=== PATIENT | female | born 1955 | race Caucasian/White ===

== ENCOUNTER → 2017-04-26 | Outpatient (CLI) | payer OTHER ==
[2016-05-18 17:57] VITALS: BP 165/92
[~2017-04-26] MED LIST: ACET325T9 PO; ASPI81TA44 PO; ATOR10TA PO; CARV12.52 PO; DOCU-109 PO; DULO60CA6 PO; MAG30ORA2 PO; MAGN2400 PO; OLME1TAB25 PO; OMEP20CA9 PO; RIVA10TA PO; WARF6TAB7 PO
--- NOTE | 2017-04-26 12:36 | RAD ---
EXAM: ABDOMINAL ULTRASOUND. HISTORY: Epigastric pain. COMPARISON: None. FINDINGS: Sonographic evaluation of the abdomen was performed. The liver appears normal in parenchymal echotexture. There are no focal lesions. The spleen measures 7.9 cm. The gallbladder is unremarkable without evidence of stones, wall thickening or pericholecystic fluid. There is no sonographic French sign. The common duct measures 4 mm. The visualized portions of the head, body and tail of the pancreas reveal no abnormality. The right kidney measures 9.9 cm. Cortical thickness and echogenicity are preserved. There is no hydronephrosis. The left kidney measures 10.2 cm. Cortical thickness and echogenicity are preserved. There is no hydronephrosis. The visualized portions of the abdominal aorta and inferior vena cava are grossly patent and normal in caliber. IMPRESSION: 1. No cause for abdominal pain is identified.
== END | disposition home or self-care (01) ==
LOC: US 10:48
PROVIDERS: ATTEND Internal Medicine Gastroenterology
DX: R10.13 Epigastric pain (principal); R10.816 Epigastric abdominal tenderness
CPT/HCPCS: 76700

== ENCOUNTER → 2017-12-15 | Outpatient (CLI) | payer OTHER ==
[2016-05-18 17:57] VITALS: BP 165/92
[~2017-12-15] MED LIST changes: -ASPI81TA44 PO; +ASPI81TA59 PO; +WARF6TAB47 PO; -WARF6TAB7 PO
--- NOTE | 2017-12-15 08:35 | RAD ---
Left hip radiograph December 15, 2017 INDICATION: Left hip pain. COMPARISON: None available. TECHNIQUE: 2 views of the left hip are provided. FINDINGS: There is no acute fracture or dislocation. Bone mineralization is within normal limits. Joint spaces are maintained. Regional soft tissues are within normal limits. There is no soft tissue gas or osseous erosion. Left sacroiliac joint appears normal. Visualized portions of the sacrum appear intact. IMPRESSION: No acute fracture or dislocation. Electronically signed by: Elli Morrow MD (12/15/2017 8:32 AM) [id number]
== END | disposition home or self-care (01) ==
LOC: PMG 08:05
PROVIDERS: ATTEND Physician Assistant Medical
DX: M25.552 Pain in left hip (principal)
CPT/HCPCS: 73502

== ENCOUNTER → 2018-04-11 | Outpatient (CLI) | payer OTHER ==
[2016-05-18 17:57] VITALS: BP 165/92
--- NOTE | 2018-04-11 12:39 | RAD ---
Chest, 2 views, 04/11/2018: HISTORY: Cough Comparison is made to a study from 05/18/2016. The heart size and pulmonary vascularity are normal. There are calcified mediastinal and left hilar nodes compatible with old granulomatous disease. The lungs are somewhat hyperexpanded. No pulmonary infiltrate is seen. No pleural fluid is evident. An old healed right clavicular fracture is present. IMPRESSION: No acute cardiopulmonary abnormality is detected. Electronically signed by: Thien Orantes MD (04/11/2018 12:36 PM) [facility]
--- NOTE | 2018-04-11 13:06 | RAD ---
DATE: 04/11/2018 EXAM: MAMMO DENZEL SCREENING BILATERAL HISTORY: Routine screening COMPARISON: 09/25/2013 This study was interpreted with the benefit of Computerized Aided Detection (CAD). Breast Density: SCATTERED The breast parenchyma shows scattered fibroglandular densities. Breast parenchyma level B. FINDINGS: 2-D and 3-D tomosynthesis imaging was performed in CC and MLO projections. There is a 13 mm nodule in the posterolateral aspect of the left breast, best seen on the oblique tomosynthesis images #22 in CC tomosynthesis image #18. Its margins are slightly lobulated. In retrospect it was probably present on the previous study, although better defined on the current 3-D exam due to technical factors. No suspicious right breast opacities are seen. Benign type calcifications are present in both breasts. No suspicious microcalcifications are evident. IMPRESSION: Left breast nodule as described above. Sonographic evaluation is suggested. BI-RADS CATEGORY: 0 INCOMPLETE: NEEDS ADDITIONAL IMAGING EVALUATION AND/OR PRIOR MAMMOGRAMS FOR COMPARISON. RECOMMENDED FOLLOW-UP: ADD ADDITIONAL IMAGING PQRS compliance statement: Patient information was entered into a reminder system with a target due date for the next mammogram. Mammography is a sensitive method for finding small breast cancers, but it does not detect them all and is not a substitute for careful clinical examination. A negative mammogram does not negate a clinically suspicious finding and should not result in delay in biopsying a clinically suspicious abnormality. "Our facility is accredited by the [employer] Mammography Program."
== END | disposition home or self-care (01) ==
LOC: MAMMO 10:19
PROVIDERS: ATTEND Internal Medicine
DX: Z12.31 Encounter for screening mammogram for malignant neoplasm of breast (principal); N63.21 Unspecified lump in the left breast, upper outer quadrant; R05 Cough; R59.0 Localized enlarged lymph nodes; R07.89 Other chest pain
CPT/HCPCS: 71046; 77063; 77067

== ENCOUNTER → 2018-04-18 | Outpatient (CLI) | payer OTHER ==
[2016-05-18 17:57] VITALS: BP 165/92
--- NOTE | 2018-04-18 14:43 | RAD ---
Left breast ultrasound, 04/18/2018: History: Breast nodule Recent mammograms demonstrated a nodule in the upper outer quadrant of the left breast. A targeted ultrasound exam was performed. At the 2:30 location approximately 8 cm from the nipple there is a smooth oval-shaped hypoechoic nodule measuring 11 x 10 x 4 mm. There are low level internal echoes. No internal color flow is seen. It is wider than tall. The appearance suggests a fibroadenoma versus a complicated cyst. A circumscribed malignancy is much less likely. This appears to correspond to the mammographic abnormality. No other sonographic abnormality was detected IMPRESSION: Probably benign left breast nodule as described above. Surveillance beginning with left mammography and left breast ultrasound in 6 months is suggested. BI-RADS 3-probably benign findings
== END | disposition home or self-care (01) ==
LOC: US 13:03
PROVIDERS: ATTEND Internal Medicine
DX: R92.8 Other abnormal and inconclusive findings on diagnostic imaging of breast (principal); F17.200 Nicotine dependence, unspecified, uncomplicated
CPT/HCPCS: 76641

== ENCOUNTER → 2018-06-28 | Outpatient (CLI) | payer OTHER ==
[2016-05-18 17:57] VITALS: BP 165/92
[~2018-06-28] MED LIST changes: -CARV12.52 PO; +CARV12.547 PO
--- NOTE | 2018-06-29 07:39 | RAD ---
Exam:Bilateral ribs with PA chest Date: 06/28/2018 12:00 AM Comparison: 04/11/2018 Indication: ribs with pa chest for fall and pain, 2 days ago Findings/ Impression: The heart is not enlarged. Mediastinal and hilar contours are normal. No focal parenchymal airspace opacity. No pleural effusion or pneumothorax. AP, Oblique and Spot images of bilateral ribs demonstrates subtle cortical irregularity of the posterior-lateral aspect of the right eighth and ninth ribs with trace associated pleural elevation-thickening. These are suspicious for nondisplaced rib fractures and can be correlated with patient's symptoms. Symmetrical intercostal spacing. Electronically signed by: Fausto Murphy MD (06/29/2018 7:35 AM) [facility]
== END | disposition home or self-care (01) ==
LOC: PMG 16:54
PROVIDERS: ATTEND Registered Nurse
DX: R06.02 Shortness of breath (principal); W19.XXXD Unspecified fall, subsequent encounter
CPT/HCPCS: 71111

== ENCOUNTER → 2018-07-12 | Outpatient (CLI) | payer OTHER ==
[2016-05-18 17:57] VITALS: BP 165/92
--- NOTE | 2018-07-12 13:06 | RAD ---
EXAM: Head CT without contrast. HISTORY: Loss of consciousness. TECHNIQUE: Computed tomographic images of the head were obtained without contrast. *One or more of the following individualized dose reduction techniques were utilized for this examination: 1. Automated exposure control. 2. Adjustment of the mA and/or kV according to patient size. 3. Use of iterative reconstruction technique. COMPARISON: None. FINDINGS: There is no acute or subacute extra-axial or intraparenchymal hemorrhage. There is no mass effect or midline shift. There is no hydrocephalus. There are areas of decreased attenuation within the cerebral white matter, nonspecific and likely related to chronic small vessel disease. The visualized portions of the orbits, paranasal sinuses and mastoid air cells are unremarkable. No suspicious calvarial lesion is seen. IMPRESSION: 1. No acute intracranial finding. Note is made that MRI is more sensitive for acute infarction. 2. Decreased attenuation within the cerebral white matter, likely due to chronic small vessel disease. Electronically signed by: Radha Lieberman MD (07/12/2018 1:02 PM) [email or web address]
== END | disposition home or self-care (01) ==
LOC: CT 12:30
PROVIDERS: ATTEND Registered Nurse
DX: R40.4 Transient alteration of awareness (principal)
CPT/HCPCS: 70450

== ENCOUNTER 2018-09-07 01:02 | Observation (INO) | payer OTHER ==
[~2018-09-07] VITALS: Ht 157.5 cm; Wt 67.2 kg
--- NOTE | 2018-09-07 01:25 | PHYS DOC ---
Past History Past Medical History: GERD, Hypertension, Other Past Surgical History: Appendectomy, Tonsillectomy, Other Smoking: Cigarettes, Less than 1pk/day Alcohol Use: Occasionally Drug Use: None Adult General Chief Complaint Chief Complaint: ABDOMINAL PAIN HPI HPI 63-year-old female presents with abdominal pain. The patient was sitting on the TV with her significant other when she began abdominal pain. It is moderate in intensity. It comes in waves it is a cramping sensation. She had one episode of vomiting dark material, but admits to eating dark chocolate prior to vomiting. Patient continues to be nauseated. She denies diarrhea. The patient also noticed that her skin seems red all over. She is currently taking Benadryl for the last 2 days after having her hair dyed. She is allergic to hair dye and takes Benadryl after she has it dyed. She denies fever or chills. Review of Systems Review of Systems Constitutional: Denies fever or chills [] Eyes: Denies change in visual acuity, redness, or eye pain [] HENT: Denies nasal congestion or sore throat [] Respiratory: Denies cough or shortness of breath [] Cardiovascular: No additional information not addressed in HPI [] GI: Abdominal pain, nausea, one episode of vomiting. Denies bloody stools or diarrhea [] : Denies dysuria or hematuria [] Musculoskeletal: Denies back pain or joint pain [] Integument: Red skin[] Neurologic: Denies headache, focal weakness or sensory changes [] Endocrine: Denies polyuria or polydipsia [] All other systems were reviewed and found to be within normal limits, except as documented in this note. Allergies Allergies Allergies Coded Allergies Type Severity Reaction Last Updated Verified Opioids - Morphine Analogues Allergy Intermediate RASH 01/30/14 No codeine Allergy Intermediate RASH 01/30/14 No morphine Allergy Intermediate RASH 01/30/14 No Physical Exam Physical Exam Constitutional: Well developed, well nourished, no acute distress, non-toxic appearance. [] HENT: Normocephalic, atraumatic, bilateral external ears normal, oropharynx moist, no oral exudates, nose normal. [] Eyes: PERRLA, EOMI, conjunctiva normal, no discharge. [] Neck: Normal range of motion, no tenderness, supple, no stridor. [] Cardiovascular:Heart rate regular rhythm, no murmur [] Lungs & Thorax: Bilateral breath sounds clear to auscultation [] Abdomen: Bowel sounds normal, soft, diffuse tenderness[] Skin: Warm, dry, generalized mild erythema, no discernible rash. [] Back: No tenderness, no CVA tenderness. [] Extremities: No tenderness, no cyanosis, no clubbing, ROM intact, no edema. [] Neurologic: Alert and oriented X 3, normal motor function, normal sensory function, no focal deficits noted. [] Psychologic: Affect normal, judgement normal, mood normal. [] EKG EKG [] Radiology/Procedures Radiology/Procedures [] Impressions: EXAM: CT Abdomen and Pelvis with IV contrast CLINICAL HISTORY: Lower abdominal pain, sudden onset, N/V. Hx: Appendectomy, hysterectomy. COMPARISON: none TECHNIQUE: Helical CT of the abdomen and pelvis was performed following the administration of intravenous contrast. Axial, coronal and sagittal reformatted images were generated. PQRS compliance statement - One or more of the following individualized dose reduction techniques were utilized for this study: 1. Automated exposure control 2. Adjustment of the mA and/or kV according to patient size 3. Use of iterative reconstruction technique FINDINGS: Lower chest: Linear opacities in the lower lobes likely scarring/atelectasis. Left lower lobe calcified granuloma seen. Trace pericardial fluid may be physiologic. Abdomen and Pelvis: No focal liver lesion. Gallbladder is normal. No biliary ductal dilatation. Calcified granuloma are seen within the spleen. Adrenal glands and pancreas are unremarkable. Symmetric nephrograms. No focal renal lesion. No hydronephrosis. No small bowel dilatation. Moderate colonic stool content. There is also borderline dilation of the right colon/cecum. No abdominal pelvic ascites. No abdominal or pelvic lymphadenopathy. Aortic calcifications are seen. Small fat-containing periumbilical hernia. Bones: Old rib fractures bilaterally including subacute anterior fifth and sixth rib fractures. Multilevel degenerative changes of spine are seen. IMPRESSION: 1. Prominent appearance to borderline dilation of the right colon with predominantly fluid content, may be seen with diarrheal state. Moderate colonic stool content is seen distally. 2. No evidence for small bowel obstruction. 3. Subacute/healing anterior left fifth and sixth rib fractures Electronically signed by: Fausto Luque MD (09/07/2018 2:04 AM) [id number] DICTATED AND SIGNED BY: FAUSTO LUQUE MD DATE: 09/07/18 0152 CC: DENISE DEL ROSARIO DO; OSCAR JOYNER MD ~ Course & Med Decision Making Course & Med Decision Making Pertinent Labs and Imaging studies reviewed. (See chart for details) The patient's labs are significant for creatinine 1.6. Review of her chart does not show creatinines this level previously. Her most recent is a few years old. The patient's CT of the abdomen and pelvis does not show definite obstruction, but does show borderline dilation of the right:. Most of the colon is fluid- filled. The patient continues to have nausea, abdominal pain, and has vomited. I will give an additional dose of Zofran. The patient gets a rash with morphine derivatives so she was like Toradol for pain control. I have given her 1 L normal saline. Given the patient's CT exam, and her continued pain, I believe it would be best to admit her for further observation and workup. The patient is in agreement with this plan. I discussed the patient with Dr. Dozier and he has accepted the patient for admission. [] Dragon Disclaimer Dragon Disclaimer This electronic medical record was generated, in whole or in part, using a voice recognition dictation system. Departure Departure: Impression: Primary Impression: Abdominal pain Additional Impression: Colon distention Disposition: ADMITTED INPATIENT Condition: GUARDED Referrals: OSCAR JOYNER MD (PCP) Problem Qualifiers Primary Impression: Abdominal pain Abdominal location: generalized Qualified Codes: R10.84 - Generalized abdominal pain DENISE DEL ROSARIO DO Sep 07, 2018 01:25
[2018-09-07] MEDS ORDERED: CONTRAST GIVEN MC PRN (01:30)
[2018-09-07 01:35] LABS: BASO # 0.1 x10^3/uL (0.0-0.2); BASO % 1 % (0-3); EOS # 0.2 x10^3/uL (0.0-0.7); EOS % 2 % (0-3); HEMATOCRIT 41.2 % (36.0-47.0); HEMOGLOBIN 14.1 g/dL (12.0-15.5); LYMPH # 2.6 x10^3/uL (1.0-4.8); LYMPH % 23 % (24-48); MEAN CORPUSCULAR HEMOGLOBIN 34 pg (25-35); MEAN CORPUSCULAR HGB CONC 34 g/dL (31-37); MEAN CORPUSCULAR VOLUME 99 fL (79-100); MONO # 0.2 x10^3/uL (0.0-1.1); MONO % 2 % (0-9); NEUT % 72 % (31-73); PLATELET COUNT 369 x10^3/uL (140-400); RED BLOOD COUNT 4.17 x10^6/uL (3.50-5.40)
[2018-09-07 01:52] LABS: ALBUMIN/GLOBULIN RATIO 1.2 (1.0-1.7); CALCIUM 9.5 mg/dL (8.5-10.1); CREATININE 1.6 mg/dL (0.6-1.0); GFR 32.8; POTASSIUM 3.1 mmol/L (3.5-5.1); TOTAL BILIRUBIN 0.5 mg/dL (0.2-1.0); TOTAL PROTEIN 7.3 g/dL (6.4-8.2)
[2018-09-07] MEDS ORDERED: IOHEXOL 300 MG/ML 75 ML VIAL. IV ONE (02:00)
[2018-09-07] MEDS ORDERED: IV NORMAL SALINE 1,000ML 1,000 ML IV ONE ×2 (02:00→03:00)
[2018-09-07] MEDS ORDERED: ONDANSETRON PF 4 MG/2 ML VIAL. IV ONE ×2 (02:00→03:00)
--- NOTE | 2018-09-07 02:07 | RAD ---
EXAM: CT Abdomen and Pelvis with IV contrast CLINICAL HISTORY: Lower abdominal pain, sudden onset, N/V. Hx: Appendectomy, hysterectomy. COMPARISON: none TECHNIQUE: Helical CT of the abdomen and pelvis was performed following the administration of intravenous contrast. Axial, coronal and sagittal reformatted images were generated. PQRS compliance statement - One or more of the following individualized dose reduction techniques were utilized for this study: 1. Automated exposure control 2. Adjustment of the mA and/or kV according to patient size 3. Use of iterative reconstruction technique FINDINGS: Lower chest: Linear opacities in the lower lobes likely scarring/atelectasis. Left lower lobe calcified granuloma seen. Trace pericardial fluid may be physiologic. Abdomen and Pelvis: No focal liver lesion. Gallbladder is normal. No biliary ductal dilatation. Calcified granuloma are seen within the spleen. Adrenal glands and pancreas are unremarkable. Symmetric nephrograms. No focal renal lesion. No hydronephrosis. No small bowel dilatation. Moderate colonic stool content. There is also borderline dilation of the right colon/cecum. No abdominal pelvic ascites. No abdominal or pelvic lymphadenopathy. Aortic calcifications are seen. Small fat-containing periumbilical hernia. Bones: Old rib fractures bilaterally including subacute anterior fifth and sixth rib fractures. Multilevel degenerative changes of spine are seen. IMPRESSION: 1. Prominent appearance to borderline dilation of the right colon with predominantly fluid content, may be seen with diarrheal state. Moderate colonic stool content is seen distally. 2. No evidence for small bowel obstruction. 3. Subacute/healing anterior left fifth and sixth rib fractures Electronically signed by: Fausto Murphy MD (09/07/2018 2:04 AM) [id number]
[2018-09-07] MEDS ORDERED: ONDANSETRON PF 4 MG/2 ML VIAL. IV PRN (02:45)
[2018-09-07] MEDS ORDERED: KETOROLAC 30 MG/ML VIAL. ONE (02:46)
[2018-09-07] MEDS ORDERED: KETOROLAC 30 MG/ML VIAL. IV ONE (03:00)
[2018-09-07 04:13] LABS: BACTERIA,URINE 0 /HPF (0-FEW); BILIRUBIN,URINE NEG (NEG); CLARITY,URINE CLEAR; COLOR,URINE YELLOW; GLUCOSE,URINE NEG (NEG); NITRITE,URINE NEG (NEG); RBC,URINE 0 /HPF (0-2); SQUAMOUS EPITHELIAL CELL,UR MANY /LPF; UROBILINOGEN,URINE 0.2 mg/dL (0.2 mg/dL); WBC,URINE OCC /HPF (0-4)
--- NOTE | 2018-09-07 05:03 | RAD ---
EXAM: Supine AP view of the abdomen DATE: 09/07/2018 3:03 AM INDICATION: NG tube placement COMPARISON: 09/07/2018 FINDINGS/ IMPRESSION: Exam limited by overpenetration. NG tube tip projects over the body of the stomach. Gas-distended loops of bowel are seen within the mid abdomen. Electronically signed by: Fausto Murphy MD (09/07/2018 5:00 AM) [id number]
[2018-09-07 05:04] VITALS: BP 113/77
--- NOTE | 2018-09-07 05:04 | RAD ---
EXAM: AP View of the chest DATE: 09/07/2018 2:31 AM INDICATION: NG tube placement COMPARISON: 04/11/2019, 05/18/2016 FINDINGS/ IMPRESSION: Enteric tube projects over the expected body of the stomach. The heart is not enlarged. Calcified mediastinal/hilar lymph nodes are seen. No focal parenchymal airspace opacity. No pleural effusion or pneumothorax. Electronically signed by: Fausto Murphy MD (09/07/2018 5:01 AM) [facility]
[2018-09-07] MEDS ORDERED: PANT40TA5 PO (06:38)
[2018-09-07] MEDS ORDERED: DULO60CA44 PO (06:38)
[2018-09-07] MEDS ORDERED: RIVA20TA2 PO (06:38)
[2018-09-07 07:57] LABS: HEMATOCRIT 35.8 % (36.0-47.0); HEMOGLOBIN 12.3 g/dL (12.0-15.5); RED BLOOD COUNT 3.69 x10^6/uL (3.50-5.40); WHITE BLOOD COUNT 13.1 x10^3/uL (4.0-11.0)
[2018-09-07 08:10] LABS: CALCIUM 8.8 mg/dL (8.5-10.1); GFR 56.4
[2018-09-07] MEDS ORDERED: NICOTINE 14MG PATCH. TD SCH (09:00)
[2018-09-07 10:33] VITALS: BP 130/79
[2018-09-07] MEDS ORDERED: POTASSIUM CL 40MEQ IN 0.9%NACL 1,000 ML IV SCH (10:45)
--- NOTE | 2018-09-07 12:15 | SSS ---
ADMIT DATE: 09/07/2018 HISTORY OF PRESENT ILLNESS: The patient is a 63-year-old female patient, who came to the Emergency Room complaining of abdominal pain that started last night and it came out all of a sudden while sitting watching TV with her significant other. It is moderate in intensity, comes in waves and has a cramping sensation. According to her about 7-8 episodes of vomiting; however, she admits that she has ate dark chocolate prior to vomiting. She denied any diarrhea. She has not had any bowel movement for the last 3 days. She has been taking Benadryl in the last 2 days as having since she has her dye. She is apparently allergic to dye and takes Benadryl after she has not dyed. She denied any fever or chills. She has never had any problem like this before. She was evaluated in the Emergency Room, was found to have markedly dilated bordered dilatation in the right colon with predominantly fluid content. When I saw her this morning, she continued to have this severe abdominal pain that comes in waves and her KUB still shows that her bowel is still dilated and therefore a decision was made to transfer her to [facility] to consult the surgical team. PAST MEDICAL HISTORY: Significant for hypertension, gastroesophageal reflux disease, hyperlipidemia, and osteoarthritis. PAST SURGICAL HISTORY: Significant for appendectomy, total abdominal hysterectomy, bilateral salpingo-oophorectomy. She has also bladder sling with mesh. She has had tonsillectomy, colonoscopy and polypectomy. ALLERGIES: She is allergic to LATEX, CODEINE, and MORPHINE. MEDICATIONS: She is currently on following medications: She is on rivaroxaban 40 mg p.o. daily, atorvastatin calcium 10 mg daily, carvedilol 12.5 mg twice a day, olmesartan hydrochlorothiazide for Benicar 40/25 one tablet daily, aspirin 81 mg, attempted 5 mg daily. She is on duloxetine 90 mg daily, and Protonix 40 mg daily. FAMILY HISTORY: She has 3 brothers, one older and 2 younger. The youngest has non-Hodgkin lymphoma. Her younger sister of leukemia. Her father at age of 57 because of myocardial infarction and complication of diabetes. Her mother at age of 70 because of complication of cerebrovascular accident. SOCIAL HISTORY: She is , currently lives with her significant other. She has 2 sons. She smokes 15-20 packs a day, drinks alcohol in moderation. 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 REVIEW OF SYSTEMS: The patient denied any blurring of vision, cataract, glaucoma or macular degeneration. Denied any earache, tinnitus or sensorineural deafness. Denied any nosebleeds, stuffy nose or postnasal drip. Denied any sore throat, sore tongue, toothache, hoarseness of voice or difficulty swallowing. Did complain of nausea and vomiting. She has not had bowel movement or passed gas for the last 3 days. Denied any dysuria, frequency or hematuria. Denied any chest pain, shortness of breath, orthopnea, paroxysmal nocturnal dyspnea. Denied any chills, rigors, or fever. Denied any dizziness or lightheadedness. PHYSICAL EXAMINATION: GENERAL: When I examined her, she was resting slightly propped up in bed, in no apparent respiratory distress. There is no pallor, jaundice, cyanosis or thyromegaly. No jugular venous distention. No limb edema. VITAL SIGNS: Her heart rate was 91, blood pressure was 130/79, temperature was 98.2, respiratory rate 20, and oxygen saturation was 94% on room air. HEAD, EYES, EARS, NOSE AND THROAT: Showed normocephalic, atraumatic. She has a nasogastric tube and NG tube and to the right and left nostril to intermittent suction. NECK: Supple. HEART: Showed normal first and second heart sounds. No gallop, rub or murmur. CHEST: Clear to auscultation. No crepitation or rhonchi. ABDOMEN: Distended, soft, tender. No guarding or rigidity. No organomegaly. All hernial orifice intact and bowel sounds audible. NEUROLOGIC: She is awake, alert, responding appropriately. All cranial nerves intact. EXTREMITIES: She moves extremities without difficulty. She ambulates normally without assistance or assistive devices. LABORATORY DATA: On admission showed a white cell count of 11,000, hemoglobin 14, hematocrit 41, MCV 99, and platelet count 369,000. Her chemistry showed serum sodium of 140, potassium 3.1, chloride 100, bicarbonate 22, anion gap of 18, BUN 14, creatinine 1.6, estimated GFR was 32 mL per minute. Her glucose was 163, lactic acid was slightly elevated at 2.2, calcium was 9.5. Total bilirubin, AST, ALT, alkaline phosphatase were normal. Total protein was 7.3, albumin 4. Lipase was 138. Urinalysis was essentially unremarkable. She obviously was treated with IV fluid, IV pain medication and antiemetic. Given the fact that she continues to have this pain that comes in waves and the CT scan and x-ray are consistent with bowel obstruction. We transferred her to [facility] to continue with n.p.o. status, IV fluid, IV antiemetic and analgesic in the form of fentanyl that she is allergic to MORPHINE and CODEINE. By the time we transferred her sodium was 141, potassium 3, chloride 105, bicarbonate 24, anion gap 12, BUN 17, creatinine 1, estimated GFR was 56 mL per minute. Her glucose 121, calcium was 8.8. Her white cell count went up to 13,000, hemoglobin 12, hematocrit 35, MCV 97, and platelet count 307,000. FINAL DISCHARGE DIAGNOSES: Small-bowel obstruction and acute kidney injury, hypertension, hyperlipidemia, osteoarthritis and gastroesophageal reflux disease. KAVITA FRITZ MD DR: GUDELIA/jose JOB#: [id number] / [id number]
--- NOTE | 2018-09-08 09:59 | HP ---
ADMIT DATE: 09/07/2018 HISTORY OF PRESENT ILLNESS: The patient is a 63-year-old female patient who was initially seen at the Emergency Room of [facility] complaining of abdominal pain that started the night before while watching TV with her significant other. It is moderate in intensity, comes in waves and has a cramping sensation according to her. She has about 7-8 episodes of vomiting. However, she admits that she ate dark chocolate prior to vomiting. She denied any diarrhea. Has not had any bowel movement for at least 3 days. She has been taking Benadryl the last 2 days as she has had her hair dyed. SHE IS APPARENTLY ALLERGIC TO THE DYE and takes Benadryl after she has had her hair dyed and this happened before. She denied any chills, rigors or fever. She has never had any problem like this before. She was evaluated in the Emergency Room, was found to have borderline dilatation of the right colon, predominantly fluid content and she continued to have severe abdominal pain that comes in waves and her KUB showed that her bowels are still dilated and therefore, she was transferred to [facility] to consult the surgical team. PAST MEDICAL HISTORY: Significant for hypertension, gastroesophageal reflux disease, hyperlipidemia, and osteoarthritis. PAST SURGICAL HISTORY: Significant for appendectomy, total abdominal hysterectomy, bilateral salpingo-oophorectomy. She has also bladder sling with mesh. She has had tonsillectomy, colonoscopy and polypectomy. ALLERGIES: SHE IS ALLERGIC TO LATEX, CODEINE, AND MORPHINE. MEDICATIONS: She is currently on following medications: She is on rivaroxaban for Xarelto 20 mg daily, atorvastatin calcium 10 mg daily, carvedilol 12.5 mg twice a day, olmesartan/hydrochlorothiazide for Benicar 40/25 one tablet daily, aspirin 81 mg once a day. She is also on duloxetine 90 mg daily and Protonix 40 mg once a day. FAMILY HISTORY: She has 3 brothers, one older and 2 younger. The youngest has non-Hodgkin lymphoma. Her younger sister of leukemia. Her father at age of 57 because of myocardial infarction and complication of diabetes. Her mother at the age of 70 because of complication of cerebrovascular accident. SOCIAL HISTORY: She is , currently lives with her significant other. She has 2 sons. She smokes 15-20 packs a day, drinks alcohol in moderation. 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 PHYSICAL EXAMINATION: GENERAL: When I saw her this morning, she apparently has had a bowel movement and then has had about 6 episodes of diarrhea. Denied any vomiting, but did complain of abdominal pain, mostly in the right side: GENERAL: When I examined her, she looked well and was clearly in no apparent respiratory distress, was pale. No jaundice, cyanosis, or thyromegaly. No jugular venous distension. No lower limb edema. VITAL SIGNS: Her heart rate was 84, blood pressure was 95/69. Her temperature was 98.3, respiratory rate was 20 and oxygen saturation was 94%. HEAD, EYES, EARS, NOSE AND THROAT: Showed normocephalic, atraumatic. NECK: Supple. HEART: Showed normal first and second sounds. No gallop, rub or murmur. CHEST: Clear to auscultation. No crepitation or rhonchi. ABDOMEN: Distended, soft, nontender. No guarding or rigidity. No organomegaly. She definitely has tenderness in the right flank area. NEUROLOGIC: She is awake, alert, responding appropriately. All cranial nerves intact. EXTREMITIES: He moves extremities without difficulty. She ambulates without assistance or assistive devices. LABORATORY DATA: Showed a serum sodium 143, potassium 3.3, chloride 105, bicarbonate 26, anion gap of 12, BUN 17, creatinine 1, estimated GFR was 56 mL per minute. Her glucose was 134, lactic acid is 1.6, calcium was 8.4. Total bilirubin, AST, ALT, alkaline phosphatase were normal. Lactate dehydrogenase was 190. Total protein was 6.6, albumin 3.2. Her white cell count was 16,500, hemoglobin 12, hematocrit 36, MCV 98 and platelet count 302,000 with normal manual differential. She did have acute abdomen series, which basically showed that there is prominent air filled bowel throughout the left abdomen. This appears to be decreased in caliber compared to the rest of the recent CT. No clear transition point or free air is seen. Suspected right middle lobe and lingular atelectasis. Apparently, the patient was seen by the Gastroenterology team and stool for C. diff was recommended and to discontinue her Zosyn and start IV Flagyl. Will await evaluation by the surgical team as well as the director social service and decide the further management accordingly. KAVITA FRITZ MD DR: GUDELIA/jose JOB#: [id number] / [id number]
== END 2018-09-07 12:26 | disposition short-term general hospital (02) ==
LOC: ER 01:02 → INTOOBSV 02:48 → 1 SOUTH 02:48
PROVIDERS: ADMIT Internal Medicine; ATTEND Internal Medicine
DX: K56.699 Other intestinal obstruction unspecified as to partial versus complete obstruction (principal); N17.0 Acute kidney failure with tubular necrosis; K21.9 Gastro-esophageal reflux disease without esophagitis; I10 Essential (primary) hypertension; R11.10 Vomiting, unspecified; E78.5 Hyperlipidemia, unspecified; F17.200 Nicotine dependence, unspecified, uncomplicated; F12.90 Cannabis use, unspecified, uncomplicated; M19.90 Unspecified osteoarthritis, unspecified site; Z90.49 Acquired absence of other specified parts of digestive tract; Z91.041 Radiographic dye allergy status; Z88.5 Allergy status to narcotic agent; Z80.7 Family history of other malignant neoplasms of lymphoid, hematopoietic and related tissues; Z80.6 Family history of leukemia; Z82.49 Family history of ischemic heart disease and other diseases of the circulatory system; Z82.3 Family history of stroke; Z83.3 Family history of diabetes mellitus; Z90.710 Acquired absence of both cervix and uterus; Z90.79 Acquired absence of other genital organ(s); Z90.722 Acquired absence of ovaries, bilateral
CPT/HCPCS: 36415; 71045; 74018; 74177; 80048; 80053; 81001; 83605; 83690; 85025; 85027; 96361; 96374; 96375; 96376; G0378; J1885; J2405; J3010; Q9967; G0379; 99285-25; J7030

== ENCOUNTER → 2018-11-22 | Outpatient (CLI) | payer OTHER ==
[~2018-11-22] MED LIST changes: +DULO60CA44 PO; +PANT40TA5 PO; +RIVA20TA2 PO
--- NOTE | 2018-11-22 13:06 | RAD ---
Two-view right hip dated 11/22/2018. No comparison available. CLINICAL INDICATION: Pain. FINDINGS: 2 views right hip show normal bony alignment. No displaced fracture. No acute osseous or articular abnormality. Mild hypertrophic change at the right SI joint and pubic symphysis. No periostitis or bone destruction. IMPRESSION: No acute radiographic abnormality. Electronically signed by: Alberto Posey MD (11/22/2018 1:03 PM) [facility]
== END | disposition home or self-care (01) ==
LOC: RAD 12:30
PROVIDERS: ATTEND Internal Medicine
DX: M25.551 Pain in right hip (principal); M89.38 Hypertrophy of bone, other site
CPT/HCPCS: 73502

== ENCOUNTER 2020-07-09 16:39 | Emergency (ER) | payer OTHER ==
[~2020-07-09] VITALS: Ht 157.5 cm; Wt 62.0 kg
[~2020-07-09 16:39] MED LIST changes: -DULO60CA44 PO; +DULO60CA98 PO; -MAGN2400 PO; +MAGN24003 PO; +OMEP20CA16 PO; -OMEP20CA9 PO; -PANT40TA5 PO; +PANT40TA6 PO
[2020-07-09] MEDS ORDERED: PANTOPRAZOLE IV 40 MG VIAL. IVP ONE (17:00)
[2020-07-09] MEDS ORDERED: IV NORMAL SALINE 1,000ML 1,000 ML IV ONE ×3 (17:00→21:30)
[2020-07-09] MEDS ORDERED: PANTOPRAZOLE IV 80 MG in IV NORMAL SALINE 100ML 100 ML IV ONE (17:00)
--- NOTE | 2020-07-09 17:03 | PHYS DOC ---
Past History Past Medical History: GERD, High Cholesterol, Hypertension, Other (MOIZ GIBBS MD) Past Surgical History: Appendectomy, Tonsillectomy, Other (MOIZ GIBBS MD) Smoking: Cigarettes, Less than 1pk/day Alcohol Use: Occasionally Drug Use: None (MOIZ GIBBS MD) General Adult EDM: Chief Complaint: GI PROBLEM HPI: HPI: Patient is a 64-year-old female brought in by EMS for emesis and dark brown blackish stools. Patient states that her vomiting started about 5 to 7 days ago but has subsided over the past few days and now is only having dark tarry stools. Denies any bright red bleeding. Does have a history of GI bleeds from an esophageal ulcer 10 years ago. Denies any history of cirrhosis or heavy alcohol use. She is taking Xarelto for DVTs and PEs. Also takes losartan for hypertension. Per EMS she was positive for orthostatic vital signs. Patient states she does get lightheaded when she stands up. Denies any focal abdominal pain Patient was states she has had "spells" where she has had seizure-like activity but without postictal state. And that a friend had tried to call EMS earlier in the week but she refused transport. (MOIZ GIBBS MD) Review of Systems: Review of Systems: All other systems within normal limits except for as noted in the HPI (MOIZ GIBBS MD) Current Medications: Current Meds: Current Medications Medications (Trade) Dose Ordered Sig/Siva Start Time Stop Time Status Last Admin Dose Admin Pantoprazole Sodium (Protonix Vial) 40 mg 1X ONCE 07/09/20 17:00 07/09/20 17:01 Pantoprazole Sodium 80 mg/ Sodium Chloride 100 ml @ 10 mls/hr 1X ONCE 07/09/20 17:00 07/10/20 02:59 Sodium Chloride 1,000 ml @ 1,000 mls/hr 1X ONCE 07/09/20 17:00 07/09/20 17:59 (MOIZ GIBBS MD) Current Meds: Current Medications Medications (Trade) Dose Ordered Sig/Siva Start Time Stop Time Status Last Admin Dose Admin Pantoprazole Sodium (Protonix Vial) 40 mg 1X ONCE 07/09/20 17:00 07/09/20 17:01 DC 07/09/20 17:00 40 MG Pantoprazole Sodium 80 mg/ Sodium Chloride 100 ml @ 10 mls/hr 1X ONCE 07/09/20 17:00 07/10/20 02:59 07/09/20 17:43 10 MLS/HR Sodium Chloride 1,000 ml @ 125 mls/hr 1X ONCE 07/09/20 21:30 07/10/20 05:29 07/09/20 21:30 125 MLS/HR (OBED MAZARIEGOS DO) Allergies: Allergies: Allergies Coded Allergies Type Severity Reaction Last Updated Verified Opioids - Morphine Analogues Allergy Intermediate RASH 01/30/14 No codeine Allergy Intermediate RASH 01/30/14 No morphine Allergy Intermediate RASH 01/30/14 No (MOIZ GIBBS MD) Physical Exam: PE: Constitutional: Well developed, well nourished, no acute distress, non-toxic appearance. [] HENT: Normocephalic, atraumatic, bilateral external ears normal, oropharynx moist, no oral exudates, nose normal. [] Eyes: PERRLA, EOMI, conjunctiva normal, no discharge. [] Neck: Normal range of motion, no tenderness, supple, no stridor. [] Cardiovascular:Heart rate regular rhythm, no murmur [] Lungs & Thorax: Bilateral breath sounds clear to auscultation [] Abdomen: Bowel sounds normal, soft, no tenderness, no masses, no pulsatile masses. [] Skin: Warm, dry, no erythema, no rash. [] Back: No tenderness, no CVA tenderness. [] Extremities: No tenderness, no cyanosis, no clubbing, ROM intact, no edema. [] Neurologic: Alert and oriented X 3, normal motor function, normal sensory function, no focal deficits noted. [] Psychologic: Affect normal, judgement normal, mood normal. [] (MOIZ GIBBS MD) Current Patient Data: Labs: Laboratory Tests Test 07/09/20 17:24 White Blood Count 5.1 x10^3/uL Red Blood Count 2.33 x10^6/uL Hemoglobin 8.5 g/dL Hematocrit 24.6 % Mean Corpuscular Volume 106 fL Mean Corpuscular Hemoglobin 36 pg Mean Corpuscular Hemoglobin Concent 34 g/dL Red Cell Distribution Width 18.9 % Platelet Count 37 x10^3/uL Neutrophils (%) (Auto) 85 % Lymphocytes (%) (Auto) 10 % Monocytes (%) (Auto) 5 % Eosinophils (%) (Auto) 0 % Basophils (%) (Auto) 0 % Neutrophils # (Auto) 4.3 x10^3uL Lymphocytes # (Auto) 0.5 x10^3/uL Monocytes # (Auto) 0.2 x10^3/uL Eosinophils # (Auto) 0.0 x10^3/uL Basophils # (Auto) 0.0 x10^3/uL Platelet Estimate Decreased Anisocytosis Slight Macrocytosis Slight Activated Partial Thromboplast Time 28 SEC Sodium Level 125 mmol/L Potassium Level 3.7 mmol/L Chloride Level 78 mmol/L Carbon Dioxide Level 26 mmol/L Anion Gap 21 Blood Urea Nitrogen 173 mg/dL Creatinine 17.4 mg/dL Estimated GFR (Cockcroft-Gault) 2.1 BUN/Creatinine Ratio 10 Glucose Level 151 mg/dL Calcium Level 6.8 mg/dL Magnesium Level 1.8 mg/dL Total Bilirubin 1.2 mg/dL Aspartate Amino Transf (AST/SGOT) 142 U/L Alanine Aminotransferase (ALT/SGPT) 86 U/L Alkaline Phosphatase 209 U/L Troponin I Quantitative < 0.017 ng/mL Total Protein 6.5 g/dL Albumin 3.1 g/dL Albumin/Globulin Ratio 0.9 Lipase 478 U/L Current Medications Medications (Trade) Dose Ordered Sig/Siva Route PRN Reason Start Time Stop Time Status Last Admin Dose Admin Sodium Chloride 1,000 ml @ 1,000 mls/hr 1X ONCE IV 07/09/20 17:00 07/09/20 17:59 DC 07/09/20 17:00 Pantoprazole Sodium (Protonix Vial) 40 mg 1X ONCE IVP 07/09/20 17:00 07/09/20 17:01 DC 07/09/20 17:00 Pantoprazole Sodium 80 mg/ Sodium Chloride 100 ml @ 10 mls/hr 1X ONCE IV 07/09/20 17:00 07/10/20 02:59 07/09/20 17:43 Sodium Chloride 1,000 ml @ 1,000 mls/hr 1X ONCE IV 07/09/20 17:30 07/09/20 18:29 DC 07/09/20 17:30 Vital Signs: Vital Signs Date Time Temp Pulse Resp B/P (MAP) Pulse Ox O2 Delivery O2 Flow Rate FiO2 07/09/20 20:12 71 16 111/88 (96) 98 07/09/20 19:46 98.0 72 20 109/69 07/09/20 19:46 98.0 72 20 109/69 07/09/20 19:42 74 16 103/54 (70) 98 Room Air 07/09/20 19:02 97.6 75 20 102/60 07/09/20 18:47 97.8 72 16 87/49 (OBED MAZARIEGOS DO) EKG: EKG: [] (MOIZ GIBBS MD) EKG: EKG ordered and interpreted by daytime physician and confirmed by myself, sinus rhythm at 71 bpm, prolonged QTC at 505 otherwise unremarkable intervals, no axis deviation, nonspecific T wave abnormalities noted in leads V3, V4 without STEMI (OBED MAZARIEGOS DO) Radiology/Procedures: Radiology/Procedures: [] (MOIZ GIBBS MD) Heart Score: Risk Factors: Risk Factors: DM, Current or recent (<one month) smoker, HTN, HLP, family history of CAD, obesity. Risk Scores: Score 0 - 3: 2.5% MACE over next 6 weeks - Discharge Home Score 4 - 6: 20.3% MACE over next 6 weeks - Admit for Clinical Observation Score 7 - 10: 72.7% MACE over next 6 weeks - Early Invasive Strategies (MOIZ GIBBS MD) HEART Score for Chest Pain: HEART Score for Chest Pain Response (Comments) Value History Slighlty/Non-Suspicious 0 ECG Nonspecific Repolarizatio 1 Age >45 - < 65 1 Risk Factors 1 or 2 Risk Factors 1 Total 3 Course & Med Decision Making: Course & Med Decision Making Discussed transfer with Dr. Dozier at shift change, will accept patient. Patient is still pending some labs but is borderline stable with active bleeding and platelet count of 37,000. Discussed urgent need to get patient to a higher level of care. He will accept patient to the ICU. Patient getting 1 unit of PRBCs. Kcentra and platelets unavailable at this facility. [] (MOIZ GIBBS MD) Course & Med Decision Making I assumed care of patient after comprehensive signout from off going physician. Patient's ER work-up reviewed. At time of shift change, patient had been accepted for transfer to [facility] ICU for GI bleed in patient on Xarelto I oversaw care of patient with x2 large-bore peripheral IVs in place who received x1 L IV normal saline and receiving active 1 unit packed red blood cell transfusion for low hemoglobin with observed hematemesis in ER I called accepting physician to update status of blood transfusion, improvement in patient's hemodynamic status, and the fact that she appears to be in acute renal failure. Joint decision to contact nephrology for guidance and recommendations for overnight management Dr. Brito, nephrology at [facility] contacted and case discussed. No acute indication for hemodialysis but he agreed with my decision to administer additional 1 L IV normal saline. Patient to be seen by their service in the morning Patient remained hemodynamically stable, no recurrent episodes of hematemesis or other concerning findings such as adverse reaction to blood transfusion noted during patient's time in ER prior to EMS transport to [facility] (OBED MAZARIEGOS DO) Dragon Disclaimer: Lis Disclaimer: This electronic medical record was generated, in whole or in part, using a voice recognition dictation system. (MOIZ GIBBS MD) Departure Departure: Impression: Primary Impression: GI bleed Additional Impressions: Current use of buttermaker continuous churn anticoagulation Acute renal failure Disposition: 02 DC/TRF OTHER SHORT TERM HOS ([facility]) Admitting Physician: Von Dozier (OBED MAZARIEGOS DO) Condition: STABLE Referrals: OSCAR JOYNER MD (PCP) MOIZ GIBBS MD Jul 09, 2020 17:03 OBED MAZARIEGOS DO Jul 09, 2020 21:12
[2020-07-09 18:47] VITALS: BP 87/49
[2020-07-09 19:02] VITALS: BP 102/60
[2020-07-09 19:06] LABS: ALBUMIN 3.1 g/dL (3.4-5.0); ALBUMIN/GLOBULIN RATIO 0.9 (1.0-1.7); CALCIUM 6.8 mg/dL (8.5-10.1); CREATININE 17.4 mg/dL (0.6-1.0); GFR 2.1; MAGNESIUM 1.8 mg/dL (1.8-2.4); POTASSIUM 3.7 mmol/L (3.5-5.1); TOTAL BILIRUBIN 1.2 mg/dL (0.2-1.0); TOTAL PROTEIN 6.5 g/dL (6.4-8.2)
[2020-07-09 19:35] LABS: BASO % 0 % (0-3); EOS % 0 % (0-3); HEMATOCRIT 24.6 % (36.0-47.0); HEMOGLOBIN 8.5 g/dL (12.0-15.5); LYMPH # 0.5 x10^3/uL (1.0-4.8); LYMPH % 10 % (24-48); MEAN CORPUSCULAR HEMOGLOBIN 36 pg (25-35); MEAN CORPUSCULAR HGB CONC 34 g/dL (31-37); MEAN CORPUSCULAR VOLUME 106 fL (79-100); MONO # 0.2 x10^3/uL (0.0-1.1); MONO % 5 % (0-9); NEUT # 4.3 x10^3uL (1.8-7.7); NEUT % 85 % (31-73); PLATELET COUNT 37 x10^3/uL (140-400); RED BLOOD COUNT 2.33 x10^6/uL (3.50-5.40); RED CELL DISTRIBUTION WIDTH 18.9 % (11.5-14.5); WHITE BLOOD COUNT 5.1 x10^3/uL (4.0-11.0)
[2020-07-09 19:46] VITALS: BP 109/69
[2020-07-09 19:52] LABS: PLT ESTIMATE DECREASED (ADEQUATE)
[2020-07-09 19:54] LABS: ANISOCYTOSIS SLIGHT
[2020-07-09 22:59] VITALS: BP 98/60
--- NOTE | 2020-07-10 16:47 | EKG ---
[address] [address] Test Date: 2020-07-09 Test Time: 16:55:57 Pat Name: MANASA CHANEL Department: Room: Gender: F Physical Therapist Aide: KANDY : 1955 Requested By: MOIZ GIBBS Order Number: [id number] Reading MD: Measurements Intervals [place] Rate: 71 P: 90 AR: 196 QRS: 77 QRSD: 90 T: 82 QT: 460 QTc: 505 Interpretive Statements SINUS RHYTHM T ABNORMALITY IN ANTEROSEPTAL LEADS PROLONGED QT ABNORMAL ECG RI6.02 No previous ECG available for comparison
== END 2020-07-09 22:50 | disposition short-term general hospital (02) ==
LOC: ER 16:39
DX: K92.2 Gastrointestinal hemorrhage, unspecified (principal); N17.9 Acute kidney failure, unspecified; R11.2 Nausea with vomiting, unspecified; K21.9 Gastro-esophageal reflux disease without esophagitis; E78.00 Pure hypercholesterolemia, unspecified; I10 Essential (primary) hypertension; F17.210 Nicotine dependence, cigarettes, uncomplicated; Z90.89 Acquired absence of other organs; Z98.890 Other specified postprocedural states; Z79.01 Long term (current) use of anticoagulants
CPT/HCPCS: 36415; 80053; 83690; 83735; 84484; 85025; 85730; 86850; 86900; 86901; 86920; 93005; 96361; 96365; 96366; 96376; 99285; C9113; J7030; P9016

== ENCOUNTER → 2020-07-20 | Outpatient (CLI) | payer OTHER ==
[2020-07-09 22:59] VITALS: BP 98/60
[2020-07-20 12:12] LABS: HEMATOCRIT 26.3 % (36.0-47.0); HEMOGLOBIN 8.7 g/dL (12.0-15.5); RED BLOOD COUNT 2.61 x10^6/uL (3.50-5.40); RED CELL DISTRIBUTION WIDTH 19.6 % (11.5-14.5); WHITE BLOOD COUNT 7.3 x10^3/uL (4.0-11.0)
[2020-07-20 12:21] LABS: ALBUMIN 2.9 g/dL (3.4-5.0); ALBUMIN/GLOBULIN RATIO 0.8 (1.0-1.7); CALCIUM 8.1 mg/dL (8.5-10.1); CREATININE 1.3 mg/dL (0.6-1.0); GFR 41.4; TOTAL BILIRUBIN 0.4 mg/dL (0.2-1.0); TOTAL PROTEIN 6.4 g/dL (6.4-8.2)
== END ==
LOC: LAB 11:34
PROVIDERS: ATTEND Internal Medicine
DX: K92.2 Gastrointestinal hemorrhage, unspecified (principal)
CPT/HCPCS: 36415; 80053; 85027

== ENCOUNTER → 2020-11-16 | Outpatient (CLI) | payer OTHER ==
--- NOTE | 2020-11-16 15:53 | RAD ---
EXAM: Pelvis and right hip, 2 views. HISTORY: Pain. COMPARISON: None. FINDINGS: A frontal view of the pelvis and frog-leg view of the right hip are obtained. There is no f racture, dislocation or subluxation. There is mild right hip joint space narrowing and moderate right and mild left femoral head marginal osteophyte formation. There is degenerative change involving the visualized lower lumbar spine. IMPRESSION: 1. Moderate right and mild left hip osteoarthritis. 2. No acute osseous finding. Electronically signed by: Radha Lieberman MD (11/16/2020 3:51 PM) [facility]
== END ==
LOC: RAD 15:20
PROVIDERS: ATTEND Physician Assistant
DX: M16.0 Bilateral primary osteoarthritis of hip (principal)
CPT/HCPCS: 73501

== ENCOUNTER → 2021-10-21 | Outpatient (CLI) | payer OTHER ==
[~2021-10-21] MED LIST changes: -DULO60CA6 PO; +DULO60CA7 PO
--- NOTE | 2021-10-21 16:32 | RAD ---
DIAGNOSTIC BILATERAL BREAST MAMMOGRAM AND LEFT BREAST ULTRASOUND TECHNIQUE: Bilateral 2-D and 3-D digital mammography performed in routine CC and MLO projections. Gra yscale and color doppler ultrasound of the left breast. INDICATION: Follow up of probably benign left breast nodule from 2018, also due for screening mammogr aphy right breast. COMPARISON: Breast ultrasound 04/18/2018. Mammogram 04/11/2018 and 01/08/2010. FINDINGS: Breast Density: Category B: There are scattered fibroglandular densities. Circumscribed asymmetry redemonstrated in the left upper outer breast which was present in 2009 consi stent with benign process. No suspicious calcifications or architectural distortion. Ultrasound in the left breast 2:30 radial, 8 cm from the nipple demonstrates a parallel orientation c ircumscribed hypoechoic mass with central echogenic line measuring 1.3 x 1.4 x 0.6 cm with increased through transmission. Images of the left axilla are unremarkable. IMPRESSION: 1. No imaging evidence of malignancy. 2. Left upper outer breast circumscribed mass present since 2009 consistent with benign process such as fibroadenoma. ASSESSMENT: BI-RADS 2: Benign. RECOMMENDATION: Routine annual screening mammogram. The facility will notify the patient of the results via mail. Patient information will be entered int o the mammography reminder system with a target recall date for the next mammogram. A reminder letter will be generated by the facility. Electronically signed by: Alcides Hernandez MD (10/21/2021 4:30 PM) [id number]
== END ==
LOC: MAMMO 14:22
PROVIDERS: ATTEND Physician Assistant Medical
DX: N63.21 Unspecified lump in the left breast, upper outer quadrant (principal)
CPT/HCPCS: 76641; 77066; G0279; 77062